=== PATIENT | female | born 1985 | race Caucasian/White ===

== ENCOUNTER → 2016-07-27 | Day surgery (SDC) | payer OTHER ==
[~2016-07-27] VITALS: Ht 160 cm; Wt 51.4 kg
[~2016-07-27] MED LIST: ALLEGRA180 MG PO; CARAFATE1 GM PO; LEVOTHROID (SY50 MCG PO; MAXALT10 MG PO; NORGESTIMATE-E1 EACH PO; OXYCODONE-ACET1 EAC1 PO; PHENERGAN25 M1 PO; PRILOSEC20 MG PO; PROTONIX40 MG PO; PROZAC40 MG PO; SINGULAIR10 MG PO; TOPAMAX100 MG PO; TORADOL10 MG PO; TYLENOL/COD#31 TAB PO; WELLBUTRIN SR150 MG PO; ZOFRAN ODT8 MG SL
== END | disposition disaster alternative care site (69) ==
LOC: GPOC 07-26 16:00
PROC: 0DB68ZX Excision of Stomach, Via Natural or Artificial Opening Endoscopic, Diagnostic (ICD-10-PCS; principal; 2016-07-27)
DX: K29.60 Other gastritis without bleeding (principal); K31.89 Other diseases of stomach and duodenum; K21.9 Gastro-esophageal reflux disease without esophagitis; F41.9 Anxiety disorder, unspecified; F32.9 Major depressive disorder, single episode, unspecified; G47.33 Obstructive sleep apnea (adult) (pediatric); F43.10 Post-traumatic stress disorder, unspecified; Z88.8 Allergy status to other drugs, medicaments and biological substances
CPT/HCPCS: J2001; J7030